=== PATIENT | male | born 1980 | race Caucasian/White ===

== ENCOUNTER 2024-03-06 18:10 | Emergency (ER) | payer OTHER ==
[2024-03-06 18:20] VITALS: BP 129/93; PULSE 77; RESP 20; TEMP 98; BMI 29.8
[2024-03-06] MEDS: ONDANSETRON 4 MG/2 ML VIAL IVPUSH ONE (19:02)
[2024-03-06] MEDS: SODIUM CHLORIDE 0.9% 1000 ML INFUS.BAG IV ONE (19:02)
[2024-03-06] MEDS ORDERED: ONDANSETRON 4 MG/2 ML VIAL ONE (19:04)
[2024-03-06 19:14] LABS: INR 0.98 (0.83-1.09); PROTHROMBIN TIME (PATIENT) 11.4 SEC (9.7-13.0)
[2024-03-06 19:17] LABS: ACTIVATED PTT 28.3 SECONDS (25.2-36.5); HEMOGLOBIN 16.1 G/dL (11.7-16.9); MCH 30.2 pg (25.7-33.7); MCHC 32.8 g/dl (32.0-35.9); MEAN CELL VOLUME 92.1 fl (80-96); MEAN PLT VOLUME 8.7 fl (7.5-11.1); PLATELET COUNT 221.5 10^3/uL (134-434); RBC 5.32 10^6/uL (4.00-5.60); RDW 12.8 % (11.9-15.9); WHITE BLOOD COUNT 7.5 10^3/uL (4.0-10.8)
[2024-03-06 19:26] LABS: ALBUMIN 4.7 g/dl (3.4-5.0); BILIRUBIN,TOTAL 0.4 mg/dl (0.2-1); CALCIUM 10.3 mg/dl (8.5-10.1); CREATININE 0.8 mg/dl (0.6-1.3); POTASSIUM 3.8 mmol/L (3.5-5.1); TOT PROT 8.1 g/dl (6.4-8.2)
[2024-03-06 20:34] LABS: COCAINE, UR NEGATIVE (NEGATIVE); OPIATES, URI NEGATIVE (NEGATIVE); PHENCYCLIDINE,URINE NEGATIVE (NEGATIVE); URINE BARBITURATES NEGATIVE (NEGATIVE)
[2024-03-06 20:35] LABS: URINE BENZODIAZEPINES NEGATIVE (NEGATIVE)
[2024-03-06 20:40] LABS: METHADONE, UR POSITIVE (NEGATIVE); URINE AMPHETAMINES NEGATIVE (NEGATIVE)
[2024-03-06 21:06] LABS: PLATELET ESTIMATE ADEQUATE
== END 2024-03-06 20:32 | disposition home or self-care (01) ==
LOC: FER 18:10
PROC: 3E033GC Introduction of Other Therapeutic Substance into Peripheral Vein, Percutaneous Approach (ICD-10-PCS; principal; 2024-03-06)
PROC: 3E033GC Introduction of Other Therapeutic Substance into Peripheral Vein, Percutaneous Approach (ICD-10-PCS; 2024-03-06)
DX: F11.20 Opioid dependence, uncomplicated (principal); R11.2 Nausea with vomiting, unspecified; R61 Generalized hyperhidrosis
CPT/HCPCS: 36415; 80053; 80307; 84443; 84484; 85027; 85610; 85730; 93005; 99284-25